=== PATIENT | female | born 1990 | race Native Hawaiian/Other Pacific Islander ===

== ENCOUNTER 2017-08-16 14:05 | Outpatient (CLI) | payer OTHER | END 2017-08-16 20:16 | disposition home or self-care (01) | LOC: MAMMO 14:05 | DX: N60.01 Solitary cyst of right breast (principal) ==

== ENCOUNTER 2018-03-15 21:54 | Outpatient (CLI) | payer OTHER | END 2018-03-15 22:10 | disposition short-term general hospital (02) | LOC: AMB 21:54 | DX: T60.8X1A Toxic effect of other pesticides, accidental (unintentional), initial encounter (principal); R20.2 Paresthesia of skin; Y92.89 Other specified places as the place of occurrence of the external cause | CPT/HCPCS: A0425; A0427 ==

== ENCOUNTER 2018-03-15 22:23 | Emergency (ER) | payer OTHER ==
[~2018-03-15] VITALS: Ht 170.2 cm; Wt 69.4 kg
[2018-03-15 22:51] LABS: PLATELET COUNT 250 K/uL (152-353)
[2018-03-15 22:57] LABS: POTASSIUM 3.6 mmol/L (3.6-5.2)
[2018-03-16 00:23] VITALS: BP 131/90; TEMP 98.6
== END 2018-03-16 00:23 | disposition home or self-care (01) ==
LOC: ED 22:23
DX: T65.91XA Toxic effect of unspecified substance, accidental (unintentional), initial encounter (principal); Y92.018 Other place in single-family (private) house as the place of occurrence of the external cause
CPT/HCPCS: 80053; 80307; 81000; 85027; 99283; J2930

== ENCOUNTER 2018-04-07 18:29 | Emergency (ER) | payer OTHER ==
[~2018-04-07] VITALS: Ht 170.2 cm; Wt 69.4 kg
[2018-04-07 18:37] VITALS: TEMP 98.1
[2018-04-07 19:50] VITALS: BP 120/80
== END 2018-04-07 19:50 | disposition home or self-care (01) ==
LOC: ED 18:29
DX: S90.32XA Contusion of left foot, initial encounter (principal); W20.8XXA Other cause of strike by thrown, projected or falling object, initial encounter; Y92.89 Other specified places as the place of occurrence of the external cause
CPT/HCPCS: 99282

== ENCOUNTER 2018-11-13 13:57 | Emergency (ER) | payer OTHER ==
[~2018-11-13] VITALS: Ht 170.2 cm; Wt 69.4 kg
[2018-11-13 14:00] VITALS: TEMP 98.2
[2018-11-13 14:25] LABS: PLATELET COUNT 244 K/uL (152-353)
[2018-11-13 15:02] LABS: POTASSIUM 4.3 mmol/L (3.6-5.2); SODIUM 138 mmol/L (136-145)
[2018-11-13 17:27] VITALS: BP 110/77
== END 2018-11-13 17:27 | disposition home or self-care (01) ==
LOC: ED 13:57
PROVIDERS: Emergency Medicine
DX: R07.89 Other chest pain (principal); R10.12 Left upper quadrant pain; J40 Bronchitis, not specified as acute or chronic
CPT/HCPCS: 80053; 81000; 81025; 82150; 82550; 82553; 83690; 84484; 85027; 93005; 99283; Q9963

== ENCOUNTER 2018-12-25 20:01 | Emergency (ER) | payer OTHER ==
[~2018-12-25] VITALS: Ht 170.2 cm; Wt 67.1 kg
[2018-12-25 20:01] VITALS: TEMP 97.9
[2018-12-25 21:45] VITALS: BP 127/90
== END 2018-12-25 21:50 | disposition home or self-care (01) ==
LOC: ED 20:01
PROC: 2W2MX4Z Dressing of Left Lower Extremity using Bandage (ICD-10-PCS; principal; 2018-12-25)
DX: T24.212A Burn of second degree of left thigh, initial encounter (principal); T24.232A Burn of second degree of left lower leg, initial encounter; T31.10 Burns involving 10-19% of body surface with 0% to 9% third degree burns; X01.8XXA Other exposure to uncontrolled fire, not in building or structure, initial encounter; Y92.098 Other place in other non-institutional residence as the place of occurrence of the external cause
CPT/HCPCS: 90471; 90715; 96374; 96375; 99284; J1885; J2175; J2405; J7040

== ENCOUNTER 2019-04-15 07:21 | Emergency (ER) | payer OTHER ==
[~2019-04-15] VITALS: Ht 170.2 cm; Wt 83.0 kg
[2019-04-15 07:26] VITALS: TEMP 97.9
[2019-04-15 08:07] LABS: PLATELET COUNT 256 K/uL (152-353)
[2019-04-15 08:14] LABS: POTASSIUM 3.8 mmol/L (3.6-5.2); SODIUM 138 mmol/L (136-145)
[2019-04-15 10:30] VITALS: BP 140/92
== END 2019-04-15 10:30 | disposition home or self-care (01) ==
LOC: ED 07:21
PROVIDERS: Student in an Organized Health Care Education/Training Program
DX: R00.2 Palpitations (principal); R55 Syncope and collapse; R53.83 Other fatigue; Z98.890 Other specified postprocedural states; Z79.2 Long term (current) use of antibiotics
CPT/HCPCS: 36415; 80053; 81000; 81025; 83735; 84439; 84443; 84484; 85027; 85379; 93005; 99283

== ENCOUNTER 2019-09-13 11:02 | Emergency (ER) | payer OTHER ==
[~2019-09-13] VITALS: Ht 170.2 cm; Wt 73.5 kg
[2019-09-13 11:20] VITALS: TEMP 97.9
[2019-09-13 12:00] VITALS: BP 110/76
== END 2019-09-13 12:10 | disposition home or self-care (01) ==
LOC: ED 11:02
DX: J06.9 Acute upper respiratory infection, unspecified (principal); F17.210 Nicotine dependence, cigarettes, uncomplicated
CPT/HCPCS: 87502; 87651; 99283

== ENCOUNTER 2019-10-20 15:49 | Outpatient (CLI) | payer OTHER | END 2019-10-20 20:51 | disposition home or self-care (01) | LOC: RAD 15:49 | PROVIDERS: Nurse Practitioner Family | DX: R06.00 Dyspnea, unspecified (principal) | CPT/HCPCS: 36415; 80053; 85379; Q9963 ==

== ENCOUNTER 2019-11-07 12:24 | Emergency (ER) | payer OTHER ==
[~2019-11-07] VITALS: Ht 170.2 cm; Wt 73.5 kg
[2019-11-07 12:33] VITALS: BP 131/89; TEMP 97.9
== END 2019-11-07 15:07 | disposition home or self-care (01) ==
LOC: ED 12:24
DX: S50.02XA Contusion of left elbow, initial encounter (principal); S50.12XA Contusion of left forearm, initial encounter; W11.XXXA Fall on and from ladder, initial encounter; Y92.89 Other specified places as the place of occurrence of the external cause
CPT/HCPCS: 99283

== ENCOUNTER 2020-06-26 13:26 | Emergency (ER) | payer OTHER ==
[~2020-06-26] VITALS: Ht 170.2 cm; Wt 77.1 kg
[2020-06-26 15:15] VITALS: BP 134/96; TEMP 98.2
== END 2020-06-26 15:15 | disposition home or self-care (01) ==
LOC: ED 13:26
DX: M79.601 Pain in right arm (principal)
CPT/HCPCS: 96372; 99283; J1885

== ENCOUNTER 2020-10-19 18:44 | Emergency (ER) | payer OTHER ==
[~2020-10-19] VITALS: Ht 170.2 cm; Wt 77.1 kg
[2020-10-19 19:33] LABS: PLATELET COUNT 297 K/uL (152-353)
[2020-10-19 19:49] LABS: POTASSIUM 3.9 mmol/L (3.6-5.2); SODIUM 138 mmol/L (136-145)
[2020-10-19 20:30] VITALS: BP 112/78; TEMP 98.3
== END 2020-10-19 20:30 | disposition home or self-care (01) ==
LOC: ED 18:44
PROVIDERS: Family Medicine
DX: R07.89 Other chest pain (principal); F41.8 Other specified anxiety disorders
CPT/HCPCS: 36415; 80053; 82550; 84484; 85027; 93005; 99283

== ENCOUNTER 2021-01-19 14:01 | Outpatient (CLI) | payer OTHER ==
[2021-01-30 09:23] LABS: POTASSIUM 3.9 mmol/L (3.6-5.2)
[2021-01-30 09:24] LABS: PLATELET COUNT 255 K/uL (152-353)
== END 2021-01-19 23:59 | disposition home or self-care (01) ==
LOC: LABW 14:01
PROVIDERS: ATTEND Internal Medicine Gastroenterology
DX: K59.00 Constipation, unspecified (principal); R10.84 Generalized abdominal pain; Z87.19 Personal history of other diseases of the digestive system
CPT/HCPCS: 80053; 83690; 84443; 85027

== ENCOUNTER 2021-02-01 21:33 | Emergency (ER) | payer OTHER ==
[~2021-02-01] VITALS: Ht 170.2 cm; Wt 77.1 kg
[2021-02-01 21:45] VITALS: BP 132/101; TEMP 97
== END 2021-02-01 23:18 | disposition left against medical advice (07) ==
LOC: ED 21:33
DX: G43.909 Migraine, unspecified, not intractable, without status migrainosus (principal); Z53.29 Procedure and treatment not carried out because of patient's decision for other reasons; W18.2XXA Fall in (into) shower or empty bathtub, initial encounter; W01.198A Fall on same level from slipping, tripping and stumbling with subsequent striking against other object, initial encounter; Y92.89 Other specified places as the place of occurrence of the external cause
CPT/HCPCS: 99283; J3030

== ENCOUNTER 2021-05-03 15:39 | Outpatient (CLI) | payer OTHER | END 2021-05-03 19:32 | disposition home or self-care (01) | LOC: RAD 15:39 | PROVIDERS: ATTEND Nurse Practitioner Primary Care | DX: M54.89 Other dorsalgia (principal) ==

== ENCOUNTER 2021-06-02 11:05 | Outpatient (CLI) | payer OTHER | END 2021-06-02 19:00 | disposition home or self-care (01) | LOC: RAD 11:05 | PROVIDERS: ATTEND Family Medicine | DX: J40 Bronchitis, not specified as acute or chronic (principal) ==

== ENCOUNTER 2021-06-09 12:47 | Emergency (ER) | payer OTHER ==
[~2021-06-09] VITALS: Ht 170.2 cm; Wt 85.7 kg
[2021-06-09 12:55] VITALS: TEMP 97.9
[2021-06-09 14:59] VITALS: BP 116/82
== END 2021-06-09 15:00 | disposition home or self-care (01) ==
LOC: ED 12:47
DX: S80.01XA Contusion of right knee, initial encounter (principal); S20.211A Contusion of right front wall of thorax, initial encounter; W01.0XXA Fall on same level from slipping, tripping and stumbling without subsequent striking against object, initial encounter; Y92.89 Other specified places as the place of occurrence of the external cause
CPT/HCPCS: 96372; 99283; J1885

== ENCOUNTER 2021-08-28 14:49 | Emergency (ER) | payer OTHER ==
[~2021-08-28] VITALS: Ht 170.2 cm; Wt 85.7 kg
[2021-08-28 14:52] VITALS: TEMP 97.3
[2021-08-28 15:21] VITALS: BP 142/85
== END 2021-08-28 15:21 | disposition home or self-care (01) ==
LOC: ED 14:49
DX: B34.9 Viral infection, unspecified (principal); U07.1 COVID-19
CPT/HCPCS: 87635; 99282; U0003

== ENCOUNTER 2021-08-29 09:26 | Outpatient (CLI) | payer OTHER ==
[2021-08-29 09:49] LABS: PLATELET COUNT 232 K/uL (152-353)
[2021-08-29 09:50] LABS: POTASSIUM 4.6 mmol/L (3.6-5.2); SODIUM 137 mmol/L (136-145)
== END 2021-08-29 19:02 | disposition home or self-care (01) ==
LOC: RAD 09:26
PROVIDERS: ATTEND Family Medicine
DX: Z20.828 Contact with and (suspected) exposure to other viral communicable diseases (principal)
CPT/HCPCS: 36415; 80053; 82728; 84484; 85027; 85379; 86140; 92950; 93005

== ENCOUNTER 2021-08-30 09:55 | Outpatient (CLI) | payer OTHER ==
[~2021-08-30] VITALS: Ht 170.2 cm; Wt 78.0 kg
== END 2021-08-30 19:28 | disposition home or self-care (01) ==
LOC: INF 09:55
PROVIDERS: ATTEND Family Medicine
DX: U07.1 COVID-19 (principal); Z23 Encounter for immunization
CPT/HCPCS: 82550; 96365; Q0247

== ENCOUNTER 2022-01-12 16:29 | Outpatient (CLI) | payer OTHER ==
[2022-01-12 17:02] LABS: PLATELET COUNT 253 K/uL (152-353)
[2022-01-12 17:08] LABS: POTASSIUM 4.3 mmol/L (3.6-5.2); SODIUM 138 mmol/L (136-145)
== END 2022-01-12 19:19 | disposition home or self-care (01) ==
LOC: LABW 16:29
PROVIDERS: ATTEND Nurse Practitioner Family
DX: R00.0 Tachycardia, unspecified (principal)
CPT/HCPCS: 36415; 80053; 82550; 82553; 83735; 84443; 84484; 85027; 93005

== ENCOUNTER 2022-03-23 08:26 | Emergency (ER) | payer OTHER ==
[~2022-03-23] VITALS: Ht 152.4 cm; Wt 78.0 kg
[2022-03-23 08:30] VITALS: TEMP 98
[2022-03-23 09:57] LABS: PLATELET COUNT 233 K/uL (152-353)
[2022-03-23 10:04] LABS: POTASSIUM 4.1 mmol/L (3.6-5.2)
[2022-03-23 12:38] VITALS: BP 124/69
== END 2022-03-23 12:39 | disposition home or self-care (01) ==
LOC: ED 08:26
PROVIDERS: Family Medicine
DX: R51.9 Headache, unspecified (principal); H53.8 Other visual disturbances
CPT/HCPCS: 80053; 80307; 81002; 81025; 85027; 96372; 99283; J1885; J2765

== ENCOUNTER 2023-03-13 20:47 | Emergency (ER) | payer OTHER ==
[~2023-03-13] VITALS: Ht 170.2 cm; Wt 81.6 kg
[2023-03-13 21:39] LABS: PLATELET COUNT 272 K/uL (152-353)
[2023-03-13 21:46] LABS: POTASSIUM 3.9 mmol/L (3.6-5.2)
[2023-03-13 22:50] VITALS: BP 144/100; TEMP 98
== END 2023-03-13 22:50 | disposition home or self-care (01) ==
LOC: ED 20:47
PROVIDERS: Family Medicine
DX: G43.909 Migraine, unspecified, not intractable, without status migrainosus (principal); H53.149 Visual discomfort, unspecified; F17.210 Nicotine dependence, cigarettes, uncomplicated
CPT/HCPCS: 80053; 85027; 85652; 96365; 96374; 99283; 99284; J1100; J1885; J2270; J2550